=== PATIENT | male | born 1965 | race Caucasian/White ===

== ENCOUNTER → 2019-12-01 12:39 | Outpatient (CLI) | payer BC, SELFPAY ==
--- NOTE | 2019-12-01 12:48 | US_ITS ---
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 NORMAL WAVEFORMS BILATERAL. Conclusion Normal appearing resting noninvasive lower extremity arterial study. Electronically signed by : Melvin Mckeon MD 12/01/2019 18:06:05
== END ==
PROVIDERS: PCP Family Medicine; Visit Provider Nurse Practitioner Family
DX: L81.9 Disorder of pigmentation, unspecified (principal); R60.9 Edema, unspecified; L65.9 Nonscarring hair loss, unspecified
CPT/HCPCS: 93923

== ENCOUNTER → 2020-03-15 11:47 | Outpatient (CLI) | payer BC, SELFPAY ==
--- NOTE | 2020-03-15 11:50 | MR_ITS ---
PROCEDURE: MR HEAD/BRAIN WO/W CON CLINICAL INDICATION: ABNORMAL CT OF HEAD, FAMILY HX OF DEMENTIA Severe, family history of dementia COMPARISON: No exams were available for comparison TECHNIQUE: Routine multiplanar multi echo sequences are performed without and with gadolinium enhancement. FINDINGS: No midline shift, mass effect, intracranial hemorrhage, or hydrocephalus. The cerebellopontine angle, cerebellum, and brainstem have an unremarkable appearance. No enhancing lesions are evident. There is normal sanz-white matter differentiation. The pituitary, optic chiasm, corpus callosum, and craniocervical junction have an unremarkable appearance. No mastoid effusion is evident. There is increased T2 signal involving the left petrous bone medially. IMPRESSION: 1. No acute intracranial findings. 2. There is increased T2 signal involving the medial aspect of the left petrous bone. This could be related to fluid within a pneumatized in eyes petrous bone. Suggest CT scan the temporal bone for confirmation. Dictated by: Melvin Mckeon MD 03/17/2020 13:27 Melvin Mckeon MD in [place] 03/17/2020 13:27
== END ==
PROVIDERS: PCP Family Medicine; Visit Provider Family Medicine
DX: G44.89 Other headache syndrome (principal); R93.0 Abnormal findings on diagnostic imaging of skull and head, not elsewhere classified; Z81.8 Family history of other mental and behavioral disorders
CPT/HCPCS: 70553; A9576

== ENCOUNTER 2020-10-22 20:25 | Emergency (ER) | payer BC, SELFPAY ==
--- NOTE | 2020-10-22 21:11 | HMH.EDUTC ---
[facility] [place] Clinical Impression: Sinusitis Qualifiers: Sinusitis location: maxillary Chronicity: acute Recurrence: non-recurrent Qualified Code(s): J01.00 - Acute maxillary sinusitis, unspecified Disposition: Home, Self-Care Condition on Discharge: Good Instructions: DI for Sinusitis Prescriptions: Amoxicillin/Potassium Clav [Augmentin 875-125 Tablet] 1 tab PO Q12H 10 Days #20 tab Transmission Status: Pending to [facility] predniSONE [Prednisone 20mg Tab] 20 mg PO BID 5 Days #10 tab Transmission Status: Pending to [facility] Referrals: Dino Jung MD [Primary Care Provider] - Time of Disposition: 21:30 Medical Decision Making - Colt Inquiry Pt receiving controlled substance: No [facility] [place] HPI - General Stated complaint: congestion sinus pressure cough watery eyes Time Seen by Provider: 10/22/20 21:11 - History of Present Illness Provider Complaint: Sinus pressure, pain, pain in teeth, cough, itchy/watery eyes X 3 days. No fever. Has been vaccinated against COVID. Onset (ago): day(s) (3) Relieving factors: none Exacerbating factors: none Associated symptoms: denies other symptoms Treatments prior to arrival: none - Related Data Previous Rx's Medication Instructions Recorded predniSONE [Prednisone 20mg 20 mg PO BID #10 tab 07/05/19 Tab] Amoxicillin/Potassium Clav 1 tab PO Q12H 10 Days #20 tab 10/22/20 [Augmentin 875-125 Tablet] predniSONE [Prednisone 20mg 20 mg PO BID 5 Days #10 tab 10/22/20 Tab] Allergies Allergy/AdvReac Type Severity Reaction Status Date / Time tetracycline Allergy Verified 07/05/18 17:33 [facility] History - Hepatitis A Screen Attestation statement:: This patient has been screened for Hepatitis A risk factors. I have reviewed the patient's past medical history: Yes Laterality Cases: Right: Arthroscopy Shoulder - 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 Smoking Status: Never smoker Alcohol Intake: never Occupational Status: employed ROS Obtained: Yes All systems reviewed & no additional complaints - Eyes Eyes: Reports dry eyes, Reports itchy eyes - ENT Ears, Nose, Mouth, and Throat: Reports sinus pain, Reports sinus pressure, Reports sore throat - Respiratory Respiratory: Reports cough Physical Exam - General General appearance: alert, in no apparent distress - Head Head exam: normocephalic - Eye Eye exam: Present: PERRL - ENT ENT exam: Present: normal oropharynx, TM's normal bilaterally - Expanded ENT Exam Nose exam: Present: sinus tenderness Throat exam: Present: other (PND) - Respiratory Respiratory exam: Present: normal lung sounds bilaterally - Cardiovascular Cardiovascular exam: Present: regular rate, normal rhythm - Neurological Exam Neurological exam: Present: alert, oriented X3 - Psychiatric Psychiatric exam: Present: normal affect, normal mood - Skin Skin exam: Present: warm, dry
[2020-10-22 21:20] VITALS: BP 139/87; PULSE 80; RESP 18; TEMP 36.8; O2SAT 99; BMI 42.0
[2020-10-22 21:32] VITALS: BP 139/87; PULSE 80; RESP 18; TEMP 36.8; O2SAT 99
== END 2020-10-22 21:45 | disposition home or self-care (01) ==
PROVIDERS: Emergency Provider Physician Assistant; PCP Family Medicine
DX: J01.00 Acute maxillary sinusitis, unspecified (principal)
CPT/HCPCS: 99202; G0463

== ENCOUNTER → 2020-12-10 15:20 | Outpatient (CLI) | payer BC, SELFPAY ==
--- NOTE | 2020-12-10 15:28 | XR_ITS ---
PROCEDURE: XR THORACIC SPINE 3V CLINICAL INDICATION: RT SIDED THORACIC BACK PAIN,UNSPECIFIED CHRONICITY COMPARISON: No exams were available for comparison FINDINGS: There is multilevel degenerative disc disease. Prominent endplate osteophytes are present with DISH of the thoracic spine. No acute fracture or dislocation. No lytic or blastic change. Minimal lower thoracic scoliosis convex left. IMPRESSION: Spondylosis with DISH of the thoracic Dictated by: Melvin Mckeon MD 12/10/2020 16:01 Melvin Mckeon MD in [place] 12/10/2020 16:01
== END ==
PROVIDERS: PCP Family Medicine; Visit Provider Family Medicine
DX: M54.6 Pain in thoracic spine (principal)
CPT/HCPCS: 72072

== ENCOUNTER 2021-04-16 19:26 | Emergency (ER) | payer BC, SELFPAY ==
[2021-04-16 19:39] VITALS: BP 141/90; PULSE 81; RESP 22; TEMP 36.7; O2SAT 100; BMI 42.8
[2021-04-16 19:46] LABS: UTC Strep Screen (Rapid) Negative (Negative)
--- NOTE | 2021-04-16 20:22 | HMH.EDUTC ---
[facility] [place] Disposition Clinical Impression: Strep sore throat Disposition: Home, Self-Care Condition on Discharge: Good Instructions: DI for Strep Throat Additional Instructions: Start antibiotics today be sure to take it as ordered with the full length of time although you should start feeling better in 24-48 hours. Change toothbrush and toothpaste 24-48 hours after starting antibiotics Tylenol or Motrin as needed for fever or pain Encourage fluids, water, Gatorade, Powerade, try cold fluids, popsicles, ice cream will make it feel better You are contagious for 24 hours. Avoid kissing anyone, no eating or drinking after anyone. You are contagious. Follow-up the ER for new or worsening symptoms or no noticeable improvement over the next 24-48 hours. Follow-up with PCP this week. Prescriptions: Azithromycin [Zithromax 250mg tab] 250 mg PO DIRECTED #6 tab Transmission Status: Pending to [facility] Referrals: Dino Jung MD [Primary Care Provider] - Time of Disposition: 20:28 Medical Decision Making - Colt Inquiry Pt receiving controlled substance: No Vital Signs: 04/16/21 19:39 Temperature 98.0 F Temperature Source Oral Pulse Rate [Right Brachial] 81 Respiratory Rate 22 Blood Pressure [Right Arm] 141/90 H Blood Pressure Mean [Right Arm] 107 Blood Pressure Source [Right Arm] Automatic Cuff Blood Pressure Position [Right Arm] Sitting 02 Sat by Pulse Oximetry 100 - Lab Data Lab Results 04/16/21 19:39: Strep Scn Rapid Clinic Negative Orders (Tests/Meds): ORDERS Category Date Time Status Strep Screen Confirmation Stat Micro 04/16/21 19:39 Received [facility] [place] HPI - General Chief complaint: Urgent Treatment Center Stated complaint: sore throat Time Seen by Provider: 04/16/21 20:23 Description of Symptoms (Recalled from Triage Doc. by RN): PT STATES THAT HE WENT TO A FOOTBALL GAME LAST NIGHT AND STARTED WITH A SORE THROAT THAT HAS WORSENED THROUGHOUT THE DAY. DENIES ANY OTHER SYMPTOMS. HEENT Symptoms (Recalled from RN notes): Yes Resp Symptoms (Recalled from RN notes): No Skin Symptoms (Recalled from RN notes): No MS Symptoms (Recalled from RN notes): No Functional Status (Recalled from RN notes): WNL - History of Present Illness Provider Complaint: 55 yr old male states he went to a foot ball game and started having a sore throat. Pt states the sore throat has increased. - Related Data Previous Rx's Medication Instructions Recorded Amoxicillin/Potassium Clav 1 tab PO Q12H 10 Days #20 tab 10/22/20 [Augmentin 875-125 Tablet] predniSONE [Prednisone 20mg 20 mg PO BID 5 Days #10 tab 10/22/20 Tab] Azithromycin [Zithromax 250mg 250 mg PO DIRECTED #6 tab 04/16/21 tab] Allergies Allergy/AdvReac Type Severity Reaction Status Date / Time erythromycin base Allergy Verified 10/22/20 21:30 tetracycline Allergy Verified 07/05/18 17:33 - Worker's Comp Is this a Worker's Comp case?: No [facility] History - Hepatitis A Screen Drug use history?: No High risk sexual behaviors?: No History of sexually transmitted infection?: No Currently employed?: No Childcare worker?: No Do you have indoor plumbing?: Yes Do you have electricity?: Yes Attestation statement:: This patient has been screened for Hepatitis A risk factors. I have reviewed the patient's past medical history: Yes Laterality Cases: Right: Arthroscopy Shoulder - 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 Smoking Status: Never smoker Alcohol Intake: never Occupational Status: employed Household Members: family ROS Obtained: Yes Systems reviewed as appropriate & no additional complaints - Constitutional Constitutional: Reports system reviewed and no additional complaints, except as docu, Denies fever(s) - Eyes Eyes: Reports system reviewed and no additional complaints, except as docu, Denies blurry vision - ENT Ears, Nose, Mouth, and Throat: Reports system reviewed and no additional complaints, except as
[2021-04-16 20:27] VITALS: BP 141/90; PULSE 81; RESP 22; TEMP 36.7; O2SAT 100
== END 2021-04-16 20:38 | disposition home or self-care (01) ==
PROVIDERS: Emergency Provider Nurse Practitioner Family; PCP Family Medicine
DX: J02.0 Streptococcal pharyngitis (principal)
CPT/HCPCS: 87880; 99202; G0463

== ENCOUNTER 2021-09-09 09:30 | Emergency (ER) | payer BC, SELFPAY ==
[2021-09-09] VITALS (7 sets, daily range): BP systolic 139–158; BP diastolic 68–89; PULSE 65–82; RESP 16–17; TEMP 36.6–37.1; O2SAT 97–98; BMI 43.0; BMI 44.3
--- NOTE | 2021-09-09 11:27 | HMH.EDUTC ---
[facility] [place]ression: Pre-syncope Disposition: Still a Patient Condition on Discharge: Fair Referrals: Dino Jung MD [Primary Care Provider] - Time of Disposition: 11:51 Medical Decision Making - Medical Records Medical records reviewed: No: I reviewed the patient's medical records. - Colt Inquiry Pt receiving controlled substance: No Vital Signs: 09/09/21 11:20 Temperature 97.8 F Temperature Source Oral Pulse Rate [Right Brachial] 82 Respiratory Rate 17 Blood Pressure [Right Arm] 147/82 H Blood Pressure Mean [Right Arm] 103 Blood Pressure Source [Right Arm] Automatic Cuff Blood Pressure Position [Right Arm] Sitting 02 Sat by Pulse Oximetry 98 Oxygen Delivery Method Room Air Medical Decision Narrative: He was transferred to the er for cardiac workup. [facility] [place] - General Stated complaint: lightheaded Time Seen by Provider: 09/09/21 11:27 - History of Present Illness Provider Complaint: He states that he had a peroid of feeling light headed this morning. It lasted approximately 1 hour. He was driving when it started. He does feel better now. He denies any chest pain or other symptoms accompanying it. - Related Data Previous Rx's Medication Instructions Recorded Amoxicillin/Potassium Clav 1 tab PO Q12H 10 Days #20 tab 10/22/20 [Augmentin 875-125 Tablet] predniSONE [Prednisone 20mg 20 mg PO BID 5 Days #10 tab 10/22/20 Tab] Azithromycin [Zithromax 250mg 250 mg PO DIRECTED #4 tab 04/16/21 tab] Allergies Allergy/AdvReac Type Severity Reaction Status Date / Time erythromycin base Allergy Verified 10/22/20 21:30 tetracycline Allergy Verified 07/05/18 17:33 [facility] History - Hepatitis A Screen Attestation statement:: This patient has been screened for Hepatitis A risk factors. I have reviewed the patient's past medical history: Yes Laterality Cases: Right: Arthroscopy Shoulder - 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 Smoking Status: Never smoker Alcohol Intake: never Occupational Status: employed Household Members: family ROS Obtained: Yes All systems reviewed & no additional complaints - Constitutional Constitutional: Denies chills, Denies fever(s) - Eyes Eyes: Denies eye discharge - ENT Ears, Nose, Mouth, and Throat: Denies dizziness, Denies otalgia, Denies sore throat - Cardiovascular Cardiovascular: Reports as per HPI - Respiratory Respiratory: Denies shortness of breath, Denies chest congestion, Denies cough - Gastrointestinal Gastrointestingal: Denies: abdominal pain, diarrhea, nausea, vomiting Physical Exam - General General appearance: alert, in no apparent distress - Head Head exam: atraumatic, normocephalic, normal inspection - Eye Eye exam: Present: normal appearance, PERRL, EOMI - ENT ENT exam: Present: normal exam, normal oropharynx, mucous membranes moist, TM's normal bilaterally, normal external ear exam - Neck Neck exam: Present: normal inspection, full ROM, trachea midline. Absent: meningismus, lymphadenopathy - Chest Chest inspection: Present: normal inspection, symmetric chest wall rise. Absent: tenderness - Respiratory Respiratory exam: Present: normal lung sounds bilaterally. Absent: respiratory distress - Cardiovascular Cardiovascular exam: Present: regular rate, normal rhythm. Absent: JVD - Abdominal Exam Abdominal exam: Present: soft, normal bowel sounds. Absent: distention, tenderness, guarding - Extremities Exam Extremities exam: Present: normal inspection, full ROM, normal capillary refill. Absent: calf tenderness - Back Exam Back exam: Present: normal inspection. Absent: tenderness - Neurological Exam Neurological exam: Present: alert, oriented X3 - Psychiatric Psychiatric exam: Present: normal affect, normal mood - Skin Skin exam: Present: warm, dry, intact, normal color - Lymphatic Lymphatic Findings: no adenopathy
--- NOTE | 2021-09-09 11:50 | PC.NURSE ---
PATIENT SENT TO ER PER Allyssa HAMLIN APRN FOR FURTHER EVALUATION. REPORT GIVEN TO Verónica JO RN
[2021-09-09 12:17] LABS: POC Glucose,Bedside 109 (70-110)
--- NOTE | 2021-09-09 12:29 | ECG_ITS ---
APPROVED REPORT Exam: Resting ECG HR:67 bpm ECG Measurements Heart Rate 67 AXES MS 163 P 26 QRSd 93 QRS 2 QT 385 T 5 QTc 400 Conclusion SINUS RHYTHM POSSIBLE RIGHT VENTRICULAR CONDUCTION DELAY [RSR (QR) IN V1/V2] ST ELEVATION CONSISTENT WITH INJURY, PERICARDITIS, OR EARLY REPOLARIZATION [ST ELEVATION W/O NORMALLY INFLECTED T-WAVE] NONSPECIFIC ST & T-WAVE ABNORMALITY ABNORMAL ECG UNCONFIRMED REPORT Electronically signed by : Dino Cameron MD 09/09/2021 19:34:44
--- NOTE | 2021-09-09 12:36 | HMH.EDGENADL ---
ED Disposition Clinical Impression: Lightheadedness, Elevated blood pressure reading Disposition: Home, Self-Care Condition on Discharge: Good Instructions: DI for High Blood Pressure Additional Instructions: Check your blood pressure every day to 2 and record result. Take it to primary care provider. Follow-up with primary care provider for further evaluation and treatment. Return to the emergency department if symptoms worsen. Referrals: Dino Jung MD [Primary Care Provider] - - Critical Care Critical Care Time: No Attestation: On 09/09/21, the high probability of a clinically significant, sudden or life threatening deterioration of the following system(s) required my full and direct attention, intervention and personal management. The time I documented below is in addition to time spent performing reported procedures but includes the following listed in this critical care notation. Medical Decision Making - Colt Inquiry Pt receiving controlled substance: No Vital Signs: 09/09/21 11:20 09/09/21 12:00 09/09/21 13:58 Temperature 97.8 F 98.7 F Temperature Source Oral Oral Pulse Rate [Orthostatic Lying] 71 Pulse Rate [Right Brachial] 82 70 Respiratory Rate 17 16 Blood Pressure [Orthostatic Lying Left Arm] 148/68 H Blood Pressure [Orthostatic Sitting Left Arm] Blood Pressure [Orthostatic Standing Left Arm] Blood Pressure [Right Arm] 147/82 H 158/89 H Blood Pressure Mean [Right Arm] 103 112 Blood Pressure Source [Right Arm] Automatic Cuff Blood Pressure Position [Right Arm] Sitting Sitting 02 Sat by Pulse Oximetry 98 98 Oxygen Delivery Method Room Air Room Air 09/09/21 14:00 09/09/21 14:02 Temperature Temperature Source Pulse Rate [Orthostatic Lying] 65 Pulse Rate [Right Brachial] Respiratory Rate Blood Pressure [Orthostatic Lying Left Arm] 152/84 H Blood Pressure [Orthostatic Sitting Left Arm] 152/84 H Blood Pressure [Orthostatic Standing Left Arm] 157/81 H Blood Pressure [Right Arm] Blood Pressure Mean [Right Arm] Blood Pressure Source [Right Arm] Blood Pressure Position [Right Arm] 02 Sat by Pulse Oximetry Oxygen Delivery Method - Lab Data Lab Results 09/09/21 12:10: POC Glucose 109 09/09/21 13:10: WBC 6.9, RBC 5.40, Hgb 16.0, Hct 49.0, MCV 90.6, MCH 29.6, MCHC 32.7, RDW 13.8, Plt Count 220, MPV 9.2, Neut % (Auto) 63.8, Lymph % (Auto) 22.8, Mclennan % (Auto) 8.0, Eos % (Auto) 2.3, Baso % (Auto) 3.0 H, Neut # (Auto) 4.4, Lymph # (Auto) 1.6, Mclennan # (Auto) 0.6, Eos # (Auto) 0.2, Baso # (Auto) 0.2 09/09/21 13:10: Sodium 138, Potassium 4.1, Chloride 106, Carbon Dioxide 27, Anion Gap 9.1, BUN 15, Creatinine 0.80, Estimated Creat Clear 101, Estimated GFR 99, Est GFR ( Amer) 120, Glucose 86, Calcium 8.2 L, Total Bilirubin 0.6, AST 39, ALT 31, Alkaline Phosphatase 86, Troponin I < 0.01, Total Protein 7.0, Albumin 4.1, Globulin 2.9, Albumin/Globulin Ratio 1.4 Result diagrams: 09/09/21 13:10 09/09/21 13:10 Orders (Tests/Meds): ED MEDICATIONS Generic Name Dose Route Start Last Admin Trade Name Freq PRN Reason Stop Dose Admin Sodium Chloride 10 ml 09/09/21 12:45 Sodium Chloride 0.9% 10ml Flush Syringe IV 10/09/21 12:44 NEEDED PRN Maintain IV Site ORDERS Category Date Time Status Troponin I Q3H Lab 09/09/21 15:45 Ordered Troponin I Q3H Lab 09/09/21 18:45 Ordered - ECG Data Tracing #1 EKG interpreted by Harley Myers MD: Rhythm: sinus Rate: 67 [place]: normal Ectopy: none Conduction: normal ST Segment Changes: Mild diffuse elevation consistent with early repolarization T Wave Changes: none Q Waves: none No evidence of acute ischemia or injury No prior EKGs available for comparison. Medical Decision Narrative: Discussed patient's blood pressure with him. He says that the last doctor's visit with Dr. Jung his blood pressure was in the 140 systolic. He was not started on any medication. He says
[2021-09-09 13:19] LABS: Basophils # 0.2 K/mm3 (0-0.2); Eosinophils # 0.2 K/mm3 (0.0-0.4); Eosinophils % 2.3 % (0.1-12.0); Lymphocytes # 1.6 K/mm3 (0.7-4.5); Lymphocytes % 22.8 % (10-50); Mean Corpuscular HGB Conc 32.7 g/dL (31.8-35.4); Mean Corpuscular Hemoglobin 29.6 pg (27.0-31.2); Mean Corpuscular Volume 90.6 fl (80-94); Mean Platelet Volume 9.2 fl (7.4-10.4); Monocytes # 0.6 K/mm3 (0.1-1.0); Neutrophils # 4.4 K/mm3 (1.8-7.8); Neutrophils % 63.8 % (37.0-80.0); Platelet Count 220 K/mm3 (142-424); Red Cell Distribution Width 13.8 % (11.5-17.5); White Blood Count 6.9 K/mm3 (4.8-10.8)
[2021-09-09 13:24] LABS: Chloride 106 mmol/L (98-107)
[2021-09-09 13:25] LABS: Potassium 4.1 mmoL/L (3.5-5.1); Sodium 138 mmol/L (136-145)
[2021-09-09 13:27] LABS: Alanine Aminotransferase 31 U/L (12-78); Alkaline Phosphatase 86 U/L (38-126); Anion Gap 9.1 mEq/L (5-15); Aspartate Amino Transferase 39 U/L (17-59); Bilirubin,Total 0.6 mg/dl (0.2-1.3); Blood Urea Nitrogen 15 mg/dl (9-20); Carbon Dioxide 27 mmol/L (22.0-30.0); Creatinine Clearance Estimated 101 mL/min (50-200); Estimated Glomerular Filt Rate 99 ml/min (>60); GFR (African American) 120 ML/MIN (>60)
[2021-09-09 13:28] LABS: Albumin Level 4.1 g/dl (3.5-5.0); Albumin/Globulin Ratio 1.4 (1.1-1.8); Calcium 8.2 mg/dl (8.4-10.2); Globulin 2.9 g/dL (1.3-3.2); Glucose 86 mg/dl (74-100)
[2021-09-09 14:00] LABS: Troponin I < 0.01 ng/ml (0.00-0.034)
== END 2021-09-09 14:32 | disposition home or self-care (01) ==
LOC: UTC 09:33 → ER 11:49
PROVIDERS: Nurse Practitioner Family; Emergency Provider Emergency Medicine; PCP Family Medicine
DX: R42 Dizziness and giddiness (principal); R03.0 Elevated blood-pressure reading, without diagnosis of hypertension
CPT/HCPCS: 80053; 82962; 84484; 85025; 93005; 99283

== ENCOUNTER 2022-07-06 12:28 | Emergency (ER) | payer BC, SELFPAY ==
[2022-07-06 13:05] VITALS: BP 175/77; PULSE 65; RESP 20; TEMP 36.7; O2SAT 96; BMI 42.8
--- NOTE | 2022-07-06 13:13 | EXP.UTC ---
Discharge Plan Disposition Patient Disposition: Home, Self-Care Condition: Good Prescriptions Prescriptions: New benzonatate [benzonatate] 100 mg capsule 100 mg PO TIDP PRN (Reason: Cough) Qty: 30 0RF methylprednisolone 4 mg Tablets,Dose Pack 4 mg PO DIRECTED Qty: 21 0RF amoxicillin-pot clavulanate 875-125 mg Tablet 1 tab PO Q12H Qty: 20 0RF Referrals Follow up/Referrals: Provider,Referral, MD [Primary Care Provider] - See instructions Activity Restrictions/Add. Instructions Additional Instructions/Restrictions: Drink plenty of fluids. Take tylenol or ibuprofen for pain or fever. Take the medications as directed. Follow up with your regular doctor. GO TO THE ER FOR ANY WORSENING SYMPTOMS Clinical Impressions Clinical Impression: Sinusitis Instructions Patient Instructions: Sinusitis, DI for Sinusitis Discharge ED Provider: Buzz Holder [facility] General Stated complaint: congestion cough Time Seen by Provider: 07/06/22 13:13 History of Present Illness Provider Complaint: He states that for the past 3 days he has had sinus congestion, sinus drainage, bilateral ear pain, and a nonproductive cough. Related Data Previous Rx's Medication Instructions Recorded amoxicillin 875 mg-potassium 1 tab PO Q12H #20 tabs 07/06/22 clavulanate 125 mg tablet benzonatate 100 mg capsule 100 mg PO TIDP PRN Cough #30 caps 07/06/22 methylprednisolone 4 mg tablets in 4 mg PO DIRECTED #21 tabs 07/06/22 a dose pack Allergies Allergy/AdvReac Type Severity Reaction Status Date / Time erythromycin base Allergy Verified 07/06/22 13:17 tetracycline Allergy Verified 07/06/22 13:17 [facility] Disclaimer: The information contained in this section may have been updated after the patient was seen, as this information can be updated by other users. 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 Smoking Status: Never smoker alcohol intake: never current occupational status: other Travel in the last 8 weeks: None household members: family ROS Obtained: Yes All systems reviewed & no additional complaints except as documented Constitutional Constitutional: Reports poor appetite Eyes Eyes: Reports system reviewed and no additional complaints, except as documented ENT Ears, Nose, Mouth, and Throat: Reports as per HPI Cardiovascular Cardiovascular: Reports system reviewed and no additional complaints, except as documented and Denies chest pain Respiratory Respiratory: Denies shortness of breath, Denies chest congestion, Reports cough, Denies stridor and Denies wheezing Gastrointestinal Gastrointestingal: Reports system reviewed and no additional complaints, except as documented; Denies abdominal pain, diarrhea or vomiting Musculoskeletal Musculoskeletal: Reports system reviewed and no additional complaints, except as documented and Denies arthralgias Integumentary/Breasts Skin/Breast: Reports system reviewed and no additional complaints, except as documented and Denies rash Neurologic Neurologic: Denies paresthesias Allergic/Immunologic Allergic/Immunologic: Denies wheezing Physical Exam General General appearance: alert and in no apparent distress Eye Eye exam: Present normal appearance, PERRL and EOMI ENT ENT exam: Present mucous membranes moist and normal external ear exam Expanded ENT Exam External ear exam: Present normal external inspection TM/Canal exam: Bilateral TM: erythema and bulging Nose exam: Absent sinus tenderness Nasal speculum exam: Bilateral: normal Mouth exam: Present normal external inspection; Absent drooling Teeth exam: Present normal inspection Throat exam: Present tonsillar erythema and tonsillomegaly Neck Neck exam: Present normal inspection, full ROM and trachea midline; Absent tenderness, lymphadenopathy or thyromegaly Chest Chest inspection: Present normal inspection and symmetric chest wall rise; Absent tenderness or rash R
[2022-07-06 14:00] VITALS: BP 175/77; PULSE 65; RESP 20; TEMP 36.7; O2SAT 96
== END 2022-07-06 14:00 | disposition home or self-care (01) ==
PROVIDERS: Emergency Provider Nurse Practitioner Family
DX: J32.9 Chronic sinusitis, unspecified (principal)
CPT/HCPCS: 99212; G0463

== ENCOUNTER 2022-12-23 08:58 | Emergency (ER) | payer BC, SELFPAY ==
[2022-12-23 09:05] VITALS: BP 162/73; PULSE 75; RESP 20; TEMP 36.8; O2SAT 99; BMI 42.0
--- NOTE | 2022-12-23 09:40 | EXP.UTC ---
Discharge Plan Disposition Patient Disposition: Home, Self-Care Condition: Good Prescriptions Prescriptions: New cephalexin [cephalexin] 500 mg tablet 500 mg PO BID 7 Days Qty: 14 0RF Referrals Follow up/Referrals: Karlos Shankar MD [Primary Care Provider] - See instructions Activity Restrictions/Add. Instructions Additional Instructions/Restrictions: keep area claen and dry follow up with lymph edema clinic follow up with pcp if worsening or no improvement return or be seen in ed Clinical Impressions Clinical Impression: Venous stasis dermatitis of both lower extremities Instructions Patient Instructions: DI for Edema Due to Venous Stasis, Venous Stasis Ulcer Discharge ED Provider: David ([facility])Ezequiel [facility] [place] General Stated complaint: Spot on RT leg red w/inflammation Mode of Arrival: Ambulatory Source of Information: Patient Limitations: No Limitations Time Seen by Provider: 12/23/22 09:41 Description of Symptoms (Recalled from Triage Doc. by RN): PATIENT C/O AREA THAT IS RED AND WARM TO RIGHT LOWER LEG THAT HAS BEEN THERE FOR APPROX 1 WEEK. 2 SMALL SCABS NOTED TO MIDDLE OF AREA. NO KNOWN INJURY. THERE IS ALSO A SMALL SORE TO BACK OF LOWER RIGHT LEG WITH REDNESS AROUND IT HEENT Symptoms (Recalled from RN notes): No Resp Symptoms (Recalled from RN notes): No Skin Symptoms (Recalled from RN notes): Yes MS Symptoms (Recalled from RN notes): No Functional Status (Recalled from RN notes): WNL History of Present Illness Provider Complaint: 57 yr old male c/o sores to lower ext. one on rt lower leg thats been there for 1 week and 1 other area to the back of leg. also another area to the back of left leg with redness and edema Related Data Previous Rx's Medication Instructions Recorded cephalexin 500 mg tablet 500 mg PO BID 7 days #14 tabs 12/23/22 Allergies Allergy/AdvReac Type Severity Reaction Status Date / Time erythromycin base Allergy Verified 07/06/22 13:17 tetracycline Allergy Verified 07/06/22 13:17 Worker's Comp Is this a Worker's Comp case?: No [facility] Disclaimer: The information contained in this section may have been updated after the patient was seen, as this information can be updated by other users. 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: Never smoker alcohol intake: never current occupational status: other Travel in the last 8 weeks: None household members: family ROS Obtained: Yes All systems reviewed & no additional complaints except as documented Constitutional Constitutional: Reports system reviewed and no additional complaints, except as documented Eyes Eyes: Reports system reviewed and no additional complaints, except as documented ENT Ears, Nose, Mouth, and Throat: Reports system reviewed and no additional complaints, except as documented Cardiovascular Cardiovascular: Reports system reviewed and no additional complaints, except as documented, Reports leg edema, Reports leg ulcers and Reports other Respiratory Respiratory: Reports system reviewed and no additional complaints, except as documented Gastrointestinal Gastrointestingal: Reports system reviewed and no additional complaints, except as documented Musculoskeletal Musculoskeletal: Reports system reviewed and no additional complaints, except as documented and Reports as per HPI Integumentary/Breasts Skin/Breast: Reports system reviewed and no additional complaints, except as documented, Reports as per HPI, Reports pruritus and Reports wounds Physical Exam General General appearance: alert and in no apparent distress Head Head exam: atraumatic and normocephalic Eye Eye exam: Present normal appearance and PERRL ENT ENT exam: Present normal exam Neck Neck exam: Present normal inspection Respiratory Respiratory exam: Present normal lung sounds bilaterally Cardiovascular Cardiovascular exam: Present regular rate and normal rhythm Extremities Ex
[2022-12-23 09:56] VITALS: BP 162/73; PULSE 75; RESP 20; TEMP 36.8; O2SAT 99
== END 2022-12-23 10:00 | disposition home or self-care (01) ==
PROVIDERS: Emergency Provider Nurse Practitioner Family; PCP Family Medicine
DX: I87.2 Venous insufficiency (chronic) (peripheral) (principal)
CPT/HCPCS: 99212; 99214; G0463

== ENCOUNTER 2024-01-20 07:32 | Emergency (ER) | payer BC, SELFPAY ==
[2024-01-20 07:40] VITALS: BP 165/83; PULSE 57; O2SAT 99
--- NOTE | 2024-01-20 07:41 | HMH.EDGENADL ---
Discharge Plan Disposition Patient Disposition: Home, Self-Care Condition: Good Prescriptions Prescriptions: New tamsulosin [Flomax] 0.4 mg capsule 0.4 mg PO DAILY 5 Days Qty: 5 0RF ibuprofen [IBU] 800 mg tablet 800 mg PO Q6H PRN (Reason: pain) 5 Days Qty: 20 0RF ondansetron HCl 4 mg tablet 4 mg PO Q6H PRN (Reason: nausea and vomiting) 4 Days Qty: 16 0RF No Action cephalexin [cephalexin] 500 mg tablet 500 mg PO BID 7 Days Qty: 14 0RF Referrals Follow up/Referrals: Karlos Shankar MD [Primary Care Provider] - See instructions Activity Restrictions/Add. Instructions Additional Instructions/Restrictions: You have been evaluated in the ED for your complaints. You may follow-up with your PCP in the next 3 to 5 days. Please return to ED for any new or worsening symptoms. I have written for Flomax to assist with passage of her stone. I have also written for Zofran to assist with nausea. Please take Tylenol and ibuprofen as needed for your pain. I have provided you with follow-up information for urology. Address: [address] [phone] Clinical Impressions Clinical Impression: Left nephrolithiasis, Left flank pain, Calcification of bladder Instructions Patient Instructions: Kidney Stones -- Adult, DI for Acute Abdominal Pain Print Language Print Language: Malay Discharge ED Provider: Pasquale Peterson Adult HPI General Chief complaint: Abdominal Pain Stated complaint: abd pain, kidney pain Time Seen by Provider: 01/20/24 07:38 History of Present Illness HPI narrative: 58-year-old male with no pertinent past medical history presents today for evaluation concerning left flank pain which he states has been present since around 10:30 PM last night. Patient also states that he had an episode of N/V associated with his left flank pain. He denies having any fevers, chills, chest pain, shortness of breath. He does note mild generalized abdominal pain that is since resolved. Last normal bowel movement was this morning around 6 AM. Has been having normal urination without hematuria. No further complaints Related Data Previous Rx's ?Medication ?Instructions ?Recorded cephalexin 500 mg tablet 500 mg PO BID 7 days #14 tabs 12/23/22 ibuprofen 800 mg tablet (IBU) 800 mg PO Q6H PRN pain 5 days #20 01/20/24 tabs ondansetron HCl 4 mg tablet 4 mg PO Q6H PRN nausea and 01/20/24 vomiting 4 days #16 tabs tamsulosin 0.4 mg capsule (Flomax) 0.4 mg PO DAILY 5 days #5 caps 01/20/24 Allergies Allergy/AdvReac Type Severity Reaction Status Date / Time erythromycin base Allergy Verified 01/20/24 07:54 tetracycline Allergy Verified 01/20/24 07:[facility] Disclaimer: The information contained in this section may have been updated after the patient was seen, as this information can be updated by other users. 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 smoker alcohol intake: never current occupational status: other Travel in the last 8 weeks: None household members: family ROS Obtained: Yes All systems reviewed & no additional complaints except as documented Physical Exam General General appearance: alert and in no apparent distress Head Head exam: atraumatic and normocephalic Eye Eye exam: Present normal appearance, PERRL and EOMI ENT ENT exam: Present normal oropharynx and mucous membranes moist Neck Neck exam: Present full ROM; Absent meningismus Respiratory Respiratory exam: Absent respiratory distress, wheezes, stridor or accessory muscle use Cardiovascular Cardiovascular exam: Present normal rhythm Abdominal Exam Abdominal exam: Present soft; Absent distention, tenderness, guarding, rebound or rigidity Back Exam Back exam: Present CVA tenderness (L); Absent CVA tenderness (R) Neurological Exam Neurological exam: Present alert, oriented X3 and CN II-XII intact; Absent motor sensory deficit Psychiatric Psychiatric exam: Present normal affect and normal mood Skin Skin exam: Present warm and dry Medical Decision Making Medical Records Medical records reviewed: Yes I reviewed the patient's medical records. Colt Inquiry Pt receiving controlled substance: No Colt was queried for this patient: No Vital Signs: 01/20/24 07:49 Temperature 97.8 F Temperature Source Oral Pulse Rate [Left] 59 L Respiratory Rate 16 Blood Pressure [Right Arm] 165/83 H Blood Pressure Mean [Right Arm] 110 Blood Pressure Source [Right Arm] Automatic Cuff Blood Pressure Position [Right Arm] Sitting 02 Sat by Pulse Oximetry 99 Oxygen Delivery Method Room Air Lab Data Lab Results 01/20/24 07:49: Urine Color Yellow, Urine Appearance Clear, Urine pH 6.0, Ur Specific [place] 1.025, Urine Protein Negative, Urine Glucose (UA) Negative, Urine Ketones Negative, Urine Blood 3+, Urine Nitrate Negative, Urine Bilirubin Negative, Urine Urobilinogen 0.2, Ur Leukocyte Esterase Negative, Urine RBC Occasional, Urine WBC Occasional, Ur Squamous Epith Cells Occasional, Urine Bacteria 1+ 01/20/24 08:00: WBC 11.8 H, RBC 5.05, Hgb 15.4, Hct 47.0, MCV 93.0, MCH 30.5, MCHC 32.8, RDW 13.5, Plt Count 220, MPV 9.1, Neut % (Auto) 87.7 H, Lymph % (Auto) 7.1 L, Teller % (Auto) 4.3, Eos % (Auto) 0.4, Baso % (Auto) 0.4, Neut # (Auto) 10.4 H, Lymph # (Auto) 0.9, Teller # (Auto) 0.5, Eos # (Auto) 0.1, Baso # (Auto) 0.1, Total Counted 100, Neutrophils % (Manual) 88 H, Lymphocytes % (Manual) 7 L, Monocytes % (Manual) 5, Platelet Estimate Normal, RBC Morphology Normal, Sodium 138, Potassium 3.9, Chloride 107, Carbon Dioxide 26, Anion Gap 8.9, BUN 13, Creatinine 0.90, Estimated Creat Clear 137, Estimated GFR 86, Est GFR ( Amer) 104, Glucose 130 H, Calcium 8.5, Total Bilirubin 0.4, AST 30, ALT 25, Alkaline Phosphatase 87, Total Protein 7.2, Albumin 4.2, Globulin 3.0, Albumin/Globulin Ratio 1.4 01/20/24 08:00 01/20/24 08:00 Orders (Tests/Meds): ED MEDICATIONS Generic Name Dose Route Start Last Admin Trade Name Freq PRN Reason Stop Dose Admin Tamsulosin HCl 0.4 mg 01/20/24 21:00 Tamsulosin 0.4mg Capsule PO 02/19/24 20:59 HS MADELEINE Discontinued Medications Generic Name Dose Route Start Last Admin Trade Name Freq PRN Reason Stop Dose Admin Acetaminophen 1,000 mg 01/20/24 09:15 01/20/24 09:24 Acetaminophen 500mg Tab PO 01/20/24 09:16 1,000 mg ONCE ONE Administration Ibuprofen 800 mg 01/20/24 07:48 01/20/24 08:10 Ibuprofen 800 Mg Tablet PO 01/20/24 07:49 800 mg ONCE ONE Administration ORDERS Category Date Time Status CT abdomen pelvis wo con Stat Cat Scan 01/20/24 07:50 Completed CBC w/Auto Diff [Complete Blood Count Auto Diff] Stat Lab 01/20/24 08:00 Completed CMP [Comprehensive Metabolic Panel] Stat Lab 01/20/24 08:00 Completed UA [Urinalysis and Microscopic] Stat Lab 01/20/24 07:49 Completed Medical Decision Narrative: 58-year-old male with no pertinent past medical history presents today for evaluation concerning left flank pain which he states has been present since around 10:30 PM last night. Patient also states that he had an episode of N/V associated with his left flank pain. He denies having any fevers, chills, chest pain, shortness of breath. He does note mild generalized abdominal pain that is since resolved. Last normal bowel movement was this morning around 6 AM. Has been having normal urination without hematuria. On assessment, he was hemodynamically stable and in no acute distress. Afebrile. His chest was clear to auscultation bilaterally. His abdomen was soft nondistended and nontender to palpation. He did have mild CVA tenderness on the left. Other physical exam findings unremarkable. Differential diagnoses include not limited to nephrolithiasis, gastritis, gastroenteritis, among others. Urinalysis today shows 3+ blood. WBC 11.8. Creatinine 0.90.WBC 11.8. Creatinine 0.90. Urinalysis CT showing a 4.6 mm proximal left ureteral calculus causing dilatation of the left collecting system and left ureter. The left kidney is also edematous with left perirenal stranding. Of note he also has calcifications in the posterior wall of the bladder which radiology report notes could indicate infection or malignancy. On reassessment the patient remains hemodynamically stable and in no acute distress. He continues to make urine without difficulty. His pain is well-controlled at this time. I provided him with a dose of Flomax while in the ED to assist with passage of his stone. Given his findings on CT imaging, will discharge with Flomax and urology referral for follow-up. Patient was also provided with strict return ED precautions. He verbalized understanding and agreed with plan. Subsequently discharged Critical Care Critical Care Time Critical Care Time: No
[2024-01-20 07:49] VITALS: BP 165/83; PULSE 59; RESP 16; TEMP 36.6; O2SAT 99; BMI 36.1
--- NOTE | 2024-01-20 07:50 | CT_ITS ---
PROCEDURE INFORMATION: Exam: CT Abdomen And Pelvis Without Contrast Exam date and time: 01/20/2024 8:05 AM Age: 58 years old Clinical indication: Abdominal pain; Flank; Left; Additional info: L flank pain. HX of kidney stones TECHNIQUE: Imaging protocol: Computed tomography of the abdomen and pelvis without contrast. Radiation optimization: All CT scans at this facility use at least one of these dose optimization techniques: automated exposure control; mA and/or kV adjustment per patient size (includes targeted exams where dose is matched to clinical indication); or iterative reconstruction. COMPARISON: ABDPELW CT abdomen pelvis w con 04/23/2018 10:06 PM FINDINGS: Liver: Normal. No mass. Gallbladder and biliary ducts: Normal. No calcified stones. No ductal dilation. Pancreas: Normal. No ductal dilation. Spleen: Normal. No splenomegaly. Adrenal glands: Normal. No mass. Kidneys and ureters: 4.6 millimeter proximal LEFT ureteral calculus causes dilatation of LEFT collecting system and LEFT ureter. The LEFT kidney is edematous and there is LEFT perirenal stranding. 2.7 cm simple cyst posterior right kidney 14 mm simple cyst posterior right kidney . No follow-up imaging recommended . Nonobstructing left renal calculus Stomach and bowel: Unremarkable. No obstruction. No mucosal thickening. Appendix: Normal appendix Intraperitoneal space: Unremarkable. No free air. No significant fluid collection. Vasculature: Unremarkable. No abdominal aortic aneurysm. Lymph nodes: Unremarkable. No enlarged lymph nodes. Urinary bladder: Calcifications in the posterior wall of the bladder. Series 3, image 102 -104. They were not present in 2018. Calcifications in the wall can indicate infection or malignancy. Recommend urology consult. Reproductive: Unremarkable as visualized. Bones/joints: Unremarkable. No acute fracture. Soft tissues: Unremarkable. IMPRESSION: 1. 4.6 millimeter proximal LEFT ureteral calculus causes dilatation of LEFT collecting system and LEFT ureter. The LEFT kidney is edematous and there is LEFT perirenal stranding. 2. Calcifications in the posterior wall of the bladder. Series 3, image 102 -104. They were not present in 2018. Calcifications in the wall can indicate infection or malignancy. Recommend urology consult. COMMENTS: Consistent with the [place] [employer]'s Incidental Findings Committee white paper (J Am Roland Radiol 2018): Any incidental renal lesion less than 1 cm or classified as too small to characterize, or any incidental cystic renal lesion characterized as simple-appearing, is likely benign. No follow-up imaging is recommended for these lesions per consensus recommendations based on imaging criteria.
[2024-01-20 07:59] LABS: Appearance,Urine CLEAR (Clear); Bilirubin,Urine Negative (Negative); Blood, Urine 3+ (Negative); Color,Urine YELLOW (Yellow); Glucose,Urine (UA) Negative (Negative); Ketones,Urine Negative (Negative); Leukocyte Esterase,Urine Negative (Negative); Microscopic, Urine URINE MICROSCOPIC (MICROSCOPIC); Nitrate,Urine Negative (Negative); Protein,Urine Negative (Negative); Specific Gravity, Urine 1.025 (1.005-1.030); Urobilinogen,Urine 0.2 EU/dl (0.2)
--- NOTE | 2024-01-20 08:04 | PC.NURSE ---
pt to ct scan
[2024-01-20 08:09] LABS: Bacteria,Urine 1+ /lpf; RBC,Urine Occasional #/hpf (0-3); Squamous Epithelial Cell,Urine Occasional #/hpf (0-5); WBC,Urine Occasional #/hpf (0-3)
[2024-01-20] MEDS: IBUPROFEN 800 MG TABLET PO (08:10)
[2024-01-20 08:20] LABS: Albumin Level 4.2 g/dl (3.5-5.0); Basophils # 0.1 K/mm3 (0-0.2); Basophils % 0.4 % (0.1-2.0); Chloride 107 mmol/L (98-107); Eosinophils # 0.1 K/mm3 (0.0-0.4); Eosinophils % 0.4 % (0.1-12.0); Hemoglobin 15.4 g/dL (14.1-18.0); Lymphocytes # 0.9 K/mm3 (0.7-4.5); Lymphocytes % 7.1 % (10-50); Mean Corpuscular HGB Conc 32.8 g/dL (31.8-35.4); Mean Corpuscular Hemoglobin 30.5 pg (27.0-31.2); Mean Platelet Volume 9.1 fl (7.4-10.4); Monocytes # 0.5 K/mm3 (0.1-1.0); Monocytes % 4.3 % (1.7-9.3); Neutrophils # 10.4 K/mm3 (1.8-7.8); Neutrophils % 87.7 % (37.0-80.0); Platelet Count 220 K/mm3 (142-424); Red Blood Count 5.05 M/mm3 (4.60-6.20); Red Cell Distribution Width 13.5 % (11.5-17.5); Sodium 138 mmol/L (136-145); White Blood Count 11.8 K/mm3 (4.8-10.8)
[2024-01-20 08:21] LABS: Potassium 3.9 mmoL/L (3.5-5.1)
[2024-01-20 08:23] LABS: Alanine Aminotransferase 25 U/L (12-78); Albumin/Globulin Ratio 1.4 (1.1-1.8); Alkaline Phosphatase 87 U/L (38-126); Anion Gap 8.9 mEq/L (5-15); Aspartate Amino Transferase 30 U/L (17-59); Bilirubin,Total 0.4 mg/dl (0.2-1.3); Blood Urea Nitrogen 13 mg/dl (9-20); Carbon Dioxide 26 mmol/L (22.0-30.0); Creatinine Clearance Estimated 137 mL/min (50-200); Estimated Glomerular Filt Rate 86 ml/min (>60); GFR (African American) 104 ML/MIN (>60); Total Protein,Serum 7.2 g/dl (6.3-8.2)
[2024-01-20 08:24] LABS: Calcium 8.5 mg/dl (8.4-10.2); Glucose 130 mg/dl (74-100)
[2024-01-20 08:25] LABS: MANUAL DIFFERENTIAL MANUAL DIFFERENTIAL (MANUAL DIFF)
[2024-01-20 08:31] VITALS: BP 166/85; PULSE 67; O2SAT 96
[2024-01-20 09:01] VITALS: BP 172/81; PULSE 76; O2SAT 98
[2024-01-20 09:07] LABS: Lymphocytes % 7 % (10-50); Monocytes % 5 % (2-9); Neutrophils % 88 % (42-76); Total Cells Counted 100
[2024-01-20 09:08] LABS: Platelet Estimate Normal; RBC Morphology Normal
[2024-01-20] MEDS: ACETAMINOPHEN 500MG TAB 1000 MG PO (09:24)
[2024-01-20 09:55] VITALS: BP 174/86; PULSE 59; RESP 18; TEMP 36.6
== END 2024-01-20 09:57 | disposition home or self-care (01) ==
PROVIDERS: Emergency Provider Emergency Medicine; PCP Family Medicine
DX: R10.32 Left lower quadrant pain (principal); M54.59 Other low back pain; N20.1 Calculus of ureter; N21.0 Calculus in bladder; R11.2 Nausea with vomiting, unspecified
CPT/HCPCS: 74176; 80053; 81001; 85007; 85025; 85027; 99284

== ENCOUNTER 2024-11-05 15:10 | Outpatient (CLI) | payer BC, SELFPAY ==
[2024-11-05 16:10] LABS: Basophils % 0.4 % (0.1-2.0); Eosinophils # 0.1 Kmm3 (0.0-0.4); Eosinophils % 0.9 % (0.1-12.0); Hematocrit 44.5 % (42.0-52.0); Hemoglobin 15.1 g/dL (14.1-18.0); Immature Granulocytes # 0.01 10^3uL; Immature Granulocytes % 0.1 %; Lymphocytes # 1.5 K/mm3 (0.7-4.5); Lymphocytes % 22.3 % (10-50); Mean Corpuscular HGB Conc 33.9 g/dL (31.8-35.4); Mean Corpuscular Hemoglobin 29.5 pg (27.0-31.2); Mean Corpuscular Volume 86.9 fl (80-94); Mean Platelet Volume 11.1 fl (7.4-10.4); Monocytes # 0.6 K/mm3 (0.1-1.0); Monocytes % 8.9 % (1.7-9.3); Neutrophils # 4.5 K/mm3 (1.8-7.8); Neutrophils % 67.4 % (37.0-80.0); Nucleated Red Blood Cells # 0 10^3/uL; Nucleated Red Blood Cells % 0 %; Platelet Count 234 K/mm3 (142-424); Red Blood Count 5.12 M/mm3 (4.60-6.20); Red Cell Distribution Width 12.8 % (11.5-17.5); Red Cell Distribution Width-SD 39.9 fL; White Blood Count 6.7 K/mm3 (4.8-10.8)
[2024-11-05 17:05] LABS: Alanine Aminotransferase 21 U/L (12-78); Albumin Level 4.5 g/dl (3.5-5.0); Alkaline Phosphatase 64 U/L (38-126); Anion Gap 12.4 mEq/L (5-15); Aspartate Amino Transferase 31 U/L (17-59); Bilirubin,Direct 0.1 mg/dl (0.0-0.4); Bilirubin,Indirect 1.3 mg/dL (0.0-0.9); Bilirubin,Total 1.4 mg/dl (0.2-1.3); Bilirubin,Unconjugated 1.4 mg/dL (0.0-1.1); Blood Urea Nitrogen 17 mg/dl (9-20); Calcium 9.1 mg/dl (8.4-10.2); Carbon Dioxide 27 mmol/L (22.0-30.0); Chloride 102 mmol/L (98-107); Cholesterol 139 mg/dl (140-200); Estimated Glomerular Filt Rate 98 ml/min (>60); GFR (African American) 119 ML/MIN (>60); Glucose 102 mg/dl (74-100); HDL Cholesterol 28 mg/dl (40-60); Magnesium 2.3 mg/dl (1.6-2.3); Potassium 4.4 mmoL/L (3.5-5.1); Sodium 137 mmol/L (136-145); Triglycerides 97 mg/dl (30-150); VLDL Cholesterol 19 mg/dL (0-40)
[2024-11-05 17:16] LABS: Direct LDL Cholesterol 96.68 mg/dL (100-129)
[2024-11-05 17:22] LABS: Free T4 (Free Thyroxine) 1.05 ng/dl (0.78-2.19)
[2024-11-05 17:37] LABS: Thyroid Stimulating Hormone 1.41 uIU/mL (0.465-4.68)
== END 2024-11-05 23:59 | disposition home or self-care (01) ==
LOC: LAB 15:12
PROVIDERS: PCP Family Medicine; Visit Provider Nurse Practitioner
DX: R42 Dizziness and giddiness (principal); R03.0 Elevated blood-pressure reading, without diagnosis of hypertension
CPT/HCPCS: 36415; 80048; 80061; 80076; 83735; 84439; 84443; 85025; 93270

== ENCOUNTER 2024-11-13 09:18 | Outpatient (CLI) | payer BC, SELFPAY ==
--- NOTE | 2024-11-13 | CA_ITS ---
APPROVED REPORT EXAM: Comprehensive 2D, Doppler, and color-flow Echocardiogram Electronic Industrial Controls Mechanic: Wendy Shaikh CRT Ht: 5 ft 9 in Wt: 246lbs BSA: 2.26 BP: 127/70 mmHg Indications: NEW AFIB EDEMA, PALPITATIONS, HTN 2D Dimensions LA Volume 68.90 mL LA Volume Index 29.80 mL/m2 (M/F) 16-34 M-Mode Dimensions RVDd 2.70 cm (0.9-2.6) LA Diam 4.42 cm (1.9-4.0) LVDd 5.04 cm (3.5-5.7) LVDs 3.22 cm (3.5-5.7) IVSd 1.49 cm (0.6-1.1) PWd 1.05 cm (0.6-1.1) EF (Teich) 65.50% FS 36.10% EDV (Teich) 120.50 mL TAPSE 1.60 (<1.7) ESV (Teich) 41.60 mL LV Diastology E Decel Time 140 (160-240 msec) E/A Ratio 3.58 MED A' 3.00 cm/s LAT A' 4.70 cm/s Aortic Valve AO Peak GR. 8.40 mmHg Mitral Valve MV E Max David. 96.0 (40-130 cm/s) MV A Velocity 27.0 (40-130 cm/s) E/A Ratio 3.58 MV PHT 41.0 ms Pulmonary Valve PV Peak Velocity 137.0 (50-150 cm/s) Tricuspid Valve TR P. Velocity 432.00 cm/s RAP Estimate 10.00 mmHg RVSP 84.50 mmHg Left Ventricle The left ventricle is normal size. The left ventricular systolic function is normal. The left ventricular ejection fraction is within the normal range. There is increased LV wall thickness. There is normal LV segmental wall motion. Diastolic function is indeterminate. LVEF is 60%. Right Ventricle Right ventricle is mildly dilated. The right ventricular systolic function is normal. Atria Left atrium is moderately dilated. Right atrium is moderately dilated. There is no Doppler evidence of interatrial shunt. Aortic Valve The aortic valve is mildly thickened. There is no aortic valvular stenosis. No aortic regurgitation is present. Mitral Valve The mitral valve is normal in structure. No evidence of mitral valve stenosis. Trace mitral regurgitation. Tricuspid Valve Tricuspid valve is grossly normal in structure and function. Trace tricuspid regurgitation. There is insufficient TR jet to estimate RVSP. Pulmonic Valve The pulmonary valve is normal in structure. Trace pulmonic regurgitation. Great Vessels The aortic root is normal in size. IVC is normal in size and collapses >50% with inspiration. Pericardium There is no pericardial effusion. Other Information Study Quality: Fair Conclusion Normal biventricular systolic function. Mild RV dilation. Biatrial dilation. No significant valvular stenosis or regurgitation. Electronically signed by : Tasia Rico MD 11/15/2024 19:49:40
== END 2024-11-13 23:59 | disposition home or self-care (01) ==
LOC: RT 09:18
PROVIDERS: PCP Family Medicine; Visit Provider Nurse Practitioner
DX: I11.9 Hypertensive heart disease without heart failure (principal); I48.91 Unspecified atrial fibrillation; R42 Dizziness and giddiness
CPT/HCPCS: 93306

== ENCOUNTER 2024-12-16 06:14 | Outpatient (CLI) | payer BC, SELFPAY ==
--- NOTE | 2024-12-16 | CA_ITS ---
APPROVED REPORT Exam: Pharmacologic Technologist: Katie Banks Ht: 5 ft 9 in Wt: 253 lbs BSA: 2.28 m2 HR: 57 bpm BP: 150/78 mmHg Stress Test Details Test: Lexiscan HR Resting HR: 57 bpm Max Heart Rate (APMHR): 159.322119 bpm Max HR Achieved: 89 bpm Target HR (85% APMHR): 135.384224 bpm % of APMHR: 55.97 Recovery HR: 60 bpm BP Resting BP: 150.0/78.0 mmHg Max BP: 150.0/78.0 mmHg Recovery BP: 149.0/81.0 mmHg ECG Resting ECG: Atrial fibrillation Stress ECG Conclusion Symptoms: - Arrhythmias/Ectopy: Atrial fibrillation, PVC ST-T Changes: Less than [address] depression. Conclusion: EKG unremarkable due to Lexiscan. Electronically signed by : Tasia Rico MD 12/17/2024 00:23:40
--- OUTSIDE RECORDS SUMMARY | 2024-12-16 06:16 | XMS_ITS | Clinical Summary ---
Author Organization Healthcare Address [address] [place] [address] Care Team Providers Care C4 Planner Name Role Phone Dino Jung MD Primary Care Provider [phone] Allergies No known active allergies Medications No known medications Active Problems No known active problems Immunizations Immunization Administration Dates Next Due Hep A, Unspecified 08/17/1999,02/11/1999 Hep B, adult 08/17/1999,03/15/1999,02/11/1999 Meningococcal MCV4P 08/13/2003 PartSimple-PillGuard COVID-19 Vac cine (Purple Cap) 12+ 02/18/2021 TD (adult), 2 Lf tetanus tox oid, preservative free, adsorbed 03/15/1999 Tdap 01/11/2016,08/15/2005 Typhoid, ViCPs 01/24/2016 Typhoid, oral 05/17/2001 Yellow Fever 05/17/2001 Family History Medical History Relation Name Comments Dementia Father Relation Name Status Comments Father 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 Tobacco Use Types Packs/Day Years Used Date Smoking Tobacco: Never Smokeless Tobacco: Never Tobacco Cessation:Counseling Given: Not Answered Alcohol Use Standard Drinks/Week Comments Never 0 (1 standard drink = 0.6 oz pur e alcohol) PHQ-2 Answer Date Recorded Patient Health Questionnaire-2 Score 0 04/16/2024 Sex and Gender Information Value Date Recorded Sex Assigned at Not on file Legal Sex Male 7:47 PM EDT Gender Identity Not on file Sexual Orientation Not on file Last Filed Vital Signs Vital Sign Reading Time Taken Comments Blood Pressure 149/83 04/16/2024 2:05 PM EDT Pulse 77 04/16/2024 1:29 PM EDT Temperature 36.6 C (97.8 F) 04/16/2024 1:29 PM EDT Respiratory Rate - - Oxygen Saturation 97% 04/16/2024 1:29 PM EDT Inhaled Oxygen Concentration - - Weight 121 kg (266 lb 15.6 oz) 04/16/2024 1:29 P M EDT Height 175.3 cm (5' 9 ) 04/16/2024 1:29 PM EDT Body Mass Index 39.43 04/16/2024 1:29 PM EDT Plan of Treatment Upcoming Encounters Date Type Department Care Team ([facility] st Contact Info) Description 04/15/2025 1:00 PM EDT Appointment [facility] Ultrasound [address] [place] [address] 04/15/2025 3:30 PM EDT Office Visit Medical Office Building Urology [address], [address] [place] [address] Jimmy Diez MD [address] [place] [address] Health Maintenance Due Date Last Done Comments [facility]-HIV Screening 1963 [facility]-Hepatitis C Screening 1963 [facility]-/Child/Adol SDOH Screenings 1963 [facility]- SDOH Screenings 1981 [facility]-Adult SDOH Screenings 1981 CT Colonography 2008 Colonoscopy 2008 FIT-DNA 2008 FIT 2008 FOBT 2008 Sigmoidoscopy 2008 [facility]-Colorectal Cancer Screening 2008 [facility]-Pneumococcal Vaccine: 50 + Years (1 of 1 - PCV) 2013 [facility]-Zoster Vaccines (1 of 2) 2013 [id number] Vaccine ( season) 2024 02/18/2021, 09/23/2020, 08/25/2020 [facility]-Influenza Vaccine (Seaso n Ended) 2025 04/13/2021 [facility]-Depression Screening 04/16/2025 04/16/2024 [facility]-DTaP,Tdap,and Td Vaccine s (3 - Td or Tdap) 01/10/2026 01/11/2016, 08/15/2005, 03/15/1999 [facility]-RSV Vaccine: 60+ Years o r (1 - 1-dose 75+ series) 2038 [facility]-Hepatitis A Vaccines Completed 000, 03/14/1999, 02/11/1999 [facility]-Obesity Intervention Completed 024, 02/06/2024 HPV Vaccines Aged Out No longer eligi ble based on patient's age to complete this topic [facility]-HIB Vaccines Aged Out No longer e ligible based on patient's age to complete this topic [facility]-IPV Vaccines Aged Out No longer e ligible based on patient's age to complete this topic [facility]-Rotavirus Vaccines Aged Out No lo nger eligible based on patient's age to complete this topic Insurance [facility] Care Teams C4 Planner Relationship Specialty Start Date End Date Dino Jung MD [address] [place], [place] [address] [address] PCP - General 10/29/20
--- NOTE | 2024-12-16 06:30 | NM_ITS ---
APPROVED REPORT Exam: Nuclear Stress Test Indication: Abnormal EKG Patient Location: Outpatient Stress Tech: Katie Banks [place] Tech:Samantha PolancoJULIANNA, RT (R)(N) Ht: 5 ft 9 in Wt: 242 lbs HR: 53 bpm BP: 150/78 mmHg BSA: 2.24 m2 TID: 1.18 BMI: 35.7 History: Abnormal EKG Procedure: Patient received 0.4 mg of intravenous Lexiscan, resting heart rate 53 bpm, resting blood pressure 150/78 mmHg, with Lexiscan maximum heart rate achieved was 95 bpm which is % of the maximum predicted heart rate and blood pressure was 149/81 mmHg. With Lexiscan, patient denied any complaint of chest pain. Cardiac Stress and Resting SPECT Images: Cardiac Stress and Resting SPECT images were obtained using technetium 99m Myoview 31.6 mCi stress and 10.02 mCi at rest. Resting and stress imaging in supine and prone positions demonstrate a small sized, moderate, reversible perfusion defect in the basal inferior LV wall. Gated imaging demonstrates mildly reduced LV systolic function. LVEF is calculated at 47%. Conclusion: Small sized, moderate, reversible perfusion defect in the basal inferior LV wall. Findings are suggestive of reversible ischemia. Gated imaging demonstrates mildly reduced LV systolic function. LVEF is calculated at 47%. Electronically signed by : Tasia Rico MD 12/17/2024 00:18:17
[2024-12-16] MEDS: SODIUM CHLORIDE 0.9% 10ML SYR (RAD ONLY) 10 ML IV ×2 (08:40)
[2024-12-16] MEDS: ISOTOPE MYOVIEW (PER STUDY) 1 DOSE IV (08:40)
== END 2024-12-16 23:59 | disposition home or self-care (01) ==
LOC: RAD 06:15
PROVIDERS: PCP Family Medicine; Visit Provider Nurse Practitioner
DX: I48.91 Unspecified atrial fibrillation (principal); I49.3 Ventricular premature depolarization; R94.39 Abnormal result of other cardiovascular function study; R94.31 Abnormal electrocardiogram [ECG] [EKG]; R60.0 Localized edema; R03.0 Elevated blood-pressure reading, without diagnosis of hypertension
CPT/HCPCS: 78452; 93017; 93018; A9502; J2785

== ENCOUNTER 2025-01-09 11:05 | Emergency (ER) | payer BC, SELFPAY ==
--- NOTE | 2025-01-09 11:11 | ED_ITS ---
Discharge Plan Disposition Patient Disposition: Home, Self-Care Condition: Good Prescriptions Prescriptions: New cefadroxil 500 mg capsule 500 mg PO BID Qty: 10 0RF No Action metoprolol succinate 50 mg tablet extended release 24 hr 50 mg PO DAILY Qty: 90 3RF cholecalciferol (vitamin D3) 1,250 mcg (50,000 unit) capsule 1,250 mcg PO WEEKLY Patient Comments: TAKE ONE CAPSULE BY MOUTH ONCE A WEEK Xarelto 20 mg tablet 20 mg PO QPMWITHMEAL Rx Instructions: must administer with evening meal amiodarone 400 mg tablet 400 mg PO DIRECTED Patient Comments: TAKE ONE TABLET BY MOUTH TWICE DAILY FOR 10 DAYS (UNTIL 01/11/25), THEN TAKE 1/2 TABLET EVERY DAY THEREAFTER Referrals Follow up/Referrals: Karlos Shankar MD [Primary Care Provider, Medical] - See instructions Activity Restrictions/Add. Instructions Additional Instructions/Restrictions: Follow-up with your urologist. Take antibiotics as prescribed. Stay well- hydrated. Return if pain, inability to urinate, or fevers. Clinical Impressions Clinical Impression: Painless hematuria, Cystitis Instructions Patient Instructions: DI for Urinary Tract Infection (UTI), DI for Urinary Tract Infection in Children Print Language Print Language: [place] Citizen Discharge ED Provider: Primitivo Downey Adult HPI General Chief complaint: Urogenital-Male Stated complaint: Sent by Lead Painter Blood in Urine Time Seen by Provider: 01/09/25 11:11 History of Present Illness HPI narrative: Patient is a 59-year-old male with history of A-fib on Xarelto, kidney stones. He presents today for painless hematuria that began about 1 hour prior to arrival. Reports that he has never had this issue before. He denies any burning with urination or pain in the flanks. He denies any fevers, or bleeding elsewhere. He has been on Xarelto for over 3 months and has not had any bleeding issues. He does endorse weight loss, but it was purposeful 60 pounds over the last year, but did have a 15 pound weight gain in the last couple of weeks. Had a cystoscopy for kidney stones reportedly last year which was normal per patient. Related Data Home Medications ?Medication ?Instructions ?Recorded ?Confirmed cholecalciferol (vitamin D3) 1,250 1,250 mcg PO WEEKLY 12/30/24 01/09/25 mcg (50,000 unit) capsule amiodarone 400 mg tablet 400 mg PO DIRECTED 01/09/25 rivaroxaban 20 mg tablet (Xarelto) 20 mg PO QPMWITHMEA L 01/09/25 01/09/25 Previous Rx's ?Medication ?Instructions ?Recorded metoprolol succinate 50 mg 50 mg PO DAILY #90 tabs 10/10 tablet,extended release 24 hr cefadroxil 500 mg capsule 500 mg PO BID #10 caps 01/09 Allergies Allergy/AdvReac Type Severity Reaction Status Date / Time tetracycline Allergy Verified 12/30/24 14:28 [facility] Disclaimer: The information contained in this section may have been updated after the patient was seen, as this information can be updated by other users. Medical History (Updated 01/09/25 @ 12:21 by Primitivo Downey MD) Abnormal findings on diagnostic imaging of heart and coronary circulation Abnormal ECG Afib 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 Smoking Status: Never smoker alcohol intake: never current occupational status: other Travel in the last 8 weeks?: None household members: family Have you lived/traveled outside [place] in past 30 days?: No Contact w/someone who lives/traveled outside US past 30 days?: No Exposure to someone with infectious disease in past 14 days?: No Do you have a fever (greater than 100.4 F or 38 C)?: No Have you tested positive for COVID-19?: No Exposed to someone with COVID-19 in past 14 days?: No Do you have a sore throat?: No Do you have a cough?: No Do you have any weakness?: No Do you have any diarrhea?: No Are you experiencing any unusual bleeding?: No Do you have any muscle aches/pain?: No Do you have any abdominal pain?: No Are you experiencing loss of taste or smell?: No Other Medical History Have you received the Flu Vaccine for this season: Yes Have you received the Pneumonia Vaccine: Yes ROS Obtained: Yes All systems reviewed & no additional complaints except as documented Physical Exam General General appearance: alert and in no apparent distress Head Head exam: atraumatic and normocephalic Eye Eye exam: Present PERRL and EOMI ENT ENT exam: Present normal oropharynx Neck Neck exam: Present full ROM and trachea midline Chest Chest inspection: Present symmetric chest wall rise Respiratory Respiratory exam: Present normal lung sounds bilaterally; Absent stridor Cardiovascular Cardiovascular exam: Present regular rate and normal rhythm Abdominal Exam Abdominal exam: Present soft; Absent distention or tenderness Extremities Exam Extremities exam: Present full ROM Neurological Exam Neurological exam: Present alert and oriented X3 Psychiatric Psychiatric exam: Present normal mood Skin Skin exam: Present warm and dry Medical Decision Making Medical Records Screening: Per USPSTF and CDC recommendations, given the prevalence of disease in our region, it is our hospital?s policy to screen for HIV and viral Hepatitis for all patients aged 18 and over and those with ongoing risk factors. Colt Inquiry Pt receiving controlled substance: No Vital Signs: 01/09/25 11:12 01/09/25 11:14 Temperature 97.9 F Temperature Source Oral Pulse Rate 67 Pulse Rate [Left] 70 Respiratory Rate 19 Blood Pressure 159/91 H Blood Pressure [Right Arm] 159/91 H Blood Pressure Mean [Right Arm] 113 02 Sat by Pulse Oximetry 97 98 Oxygen Delivery Method Room Air Room Air Lab Data Lab Results 01/09/25 11:10: Urine Color Red, Urine Appearance Turbid, Urine pH 6.5, Ur Specific Willard 1.020, Urine Protein 3+ A, Urine Glucose (UA) Negative, Urine Ketones 1+, Urine Blood 3+ A, Urine Nitrate Positive A, Urine Bilirubin 2+ A, Urine Urobilinogen 2.0, Ur Leukocyte Esterase 2+ A, Urine RBC Tntc, Urine WBC 3- 5, Ur Squamous Epith Cells Occasional, Urine Bacteria 1+ 01/09/25 11:20: WBC 8.0, RBC 5.12, Hgb 15.3, Hct 45.1, MCV 88.1, MCH 29.9, MCHC 33.9, RDW 13.0, Plt Count 228, MPV 11.0 H, Neut % (Auto) 73.9, Lymph % (Auto) 15.5, Gooding % (Auto) 9.4 H, Eos % (Auto) 0.8, Baso % (Auto) 0.3, Neut # (Auto) 5.9, Lymph # (Auto) 1.2, Gooding # (Auto) 0.8, Eos # (Auto) 0.1, Baso # (Auto) 0.0, Sodium 137, Potassium 4.0, Chloride 104, Carbon Dioxide 27, Anion Gap 10.0, BUN 19, Creatinine 0.90, Estimated Creat Clear 127, Estimated GFR 86, Est GFR ( Amer) 104, Glucose 118 H, Calcium 9.0, Total Bilirubin 1.0, AST 42, ALT 51, Alkaline Phosphatase 93, Total Creatine Kinase 113, Total Protein 7.3, Albumin 3.6, Globulin 3.7 H, Albumin/Globulin Ratio 1.0 L 01/09/25 11:20 01/09/25 11:20 Orders (Tests/Meds): ORDERS Category Date Time Status CBC w/Auto Diff [Complete Blood Count Auto Diff] Stat Lab 01/09/25 11:20 Completed CMP [Comprehensive Metabolic Panel] Stat Lab 01/09/25 11:20 Completed Creatine Kinase Stat Lab 01/09/25 11:20 Completed HIV Combo Stat Lab 01/09/25 11:20 Received Hepatitis C Ab Qual. W/ RFX Stat Lab 01/09/25 11:20 Received PT INR [Prothrombin Time INR] Stat Lab 01/09/25 11:20 Received UA [Urinalysis and Microscopic] Stat Lab 01/09/25 11:10 Completed Urine Culture Stat Micro 01/09/25 11:10 Received Medical Decision Narrative: Patient is a 59-year-old male with history of A-fib on Xarelto. He is due for cardioversion next week and was started on amiodarone a couple of days ago. He reports painless hematuria that began today. He has no complaints other than this. On exam, is warm well-perfused with full pulses in all extremities brisk Apley refill no abdominal tenderness no CVA tenderness. He denies any pain at all, and his previous kidney stones have had pain. I have lower suspicion for this at this time. He has had no overt concerning findings for malignancy, will screen for UTI with UA and any kidney disease with metabolic panel. I reviewed the labs which demonstrate no evidence of kidney injury, no evidence of anemia. Urinalysis positive for nitrites and leuk esterase and 1+ bacteria, will send with cefadroxil outpatient for UTI and possible hemorrhagic cystitis, but still recommended patient follow-up with urologist for repeat cystoscopy. A referral was offered to him but he prefers to follow with his urologist that he is already established with. Stricter precautions discussed all questions answered patient amenable plan and discharge Critical Care Critical Care Time Critical Care Time: No
--- OUTSIDE RECORDS SUMMARY | 2025-01-09 11:11 | XMS_ITS | Continuity of Care Document ---
Author Organization [facility] Address [address] [place] [address] Care Team Providers [employer] Division Chair Name Role Phone ISA SALAZAR Primary Care Provider [phone] HARLEY SANTIAGO Laborer/Grade Check Unavailable Assessment No assessment recorded. Plan of Treatment Reminders Order Date Submit Date Provider Last Modified By Organization Details Last Modified Time Details Appointments OV EST 15 2024 02:45P M Harley Santiago MD Not available Not available Not available Lab None recorded. Referral None recorded. Procedures None recorded. Surgeries cardiover jarred, elective, electrica l conversio n of arrhythmi a, external (SURG) 2024 025 [email or web address] Not available 01/01/2025 14:30:38 Imaging electroca rdiogram 2024 025 [facility], [address] [facility] [facility] [address], [place], [address], 01/02/2025 13:47:21 Medication Orders amiodaron e 400 mg tablet 2024 025 [facility], [address] [place] [address] [address], [place], [place], [phone], 01/01/2025 14:31:46 Patient TargetsNo targets recorded. Patient Instructions Encounter Date Encounter Id Patient Instructions Last Modified By Organization Details Last Modified Time 01/01/2025 [id number] I spent >60 minutes in the care of this patient including review of past medical records, updating his/her chart, interpretation of diagnostic testing and discussing diagnosis and current treatment plans. [email or web address] Not available 01/01/2025 14:31:34 Reason for Referral None Reported. Results Created Date Observation Date Name Description Value Unit Range Abnormal Flag Note LastModifiedBy Organization Detail LastModifiedTime 01/02/20 25 01/02/2025 elect rocar diogr am No observ ation record ed. [facility] [address], [place], [address], 01/02/2025 14:37:43 01/03/20 25 01/01/2025 elect rocar diogr am No observ ation record ed. [facility] [address], [place], [address], 01/02/2025 13:47:21 Result Notes None recorded. Problems Name Problem SNOMED Code Status Onset Date Resolution Date Notes Provider Name and Address Organization Details Recorded Time Paroxysmal atrial fibrillation 197298445 Active 2024 Harley Santiago MD [address] [facility], [place], [address] , [place] - [facility] & [place] 13:58:13 Body mass index 30+ - obesity 666080573 Active 2024 Harley Santiago MD [address] [place], [address] , [place] - [facility] & [place] 14:00:35 Essential hypertension 64230101 Active 2024 Harley Santiago MD [address] [place], [address] , [place] - [facility] & [place] 5 14:01:01 Obstructive sleep apnea syndrome 88356642 Active 2024 Harley Santiago MD [address] [place], [address] , [place] [facility] & [place] 14:01:19 Thallium stress test abnormal 720953586 Active 2024 Harley Santiago MD [address] [place], [address] , [place] - [facility] & [place] 14:29:49 Problem Notes None recorded. Medical Equipment None Reported. Allergies Allergen ID Allergen Name Allergen Category Reaction Reaction Severity Criticality Documentation Date Start Date Code Code System Note Provider Name and Address Organization Details Recorded Time 975856 erythromy noé medicatio n Not available Not available Not available 01/01/2025 4053 RxNorm ALEENA Olvera [facility] & [place] 13:57:02 732516 Medicinal product containin g tetracycl ine structure and acting as antibacte rial agent (product) medicatio n Not available Not available Not available 01/01/2025 90238 1004 SNOMED ALEENA Olvera [facility] & [place] 13:57:21 Medications Name Sig Start Date Stop Date Status Note LastModified by Organization Details LastModified Time azithromyci n 250 mg tablet TAKE 2 TABLETS BY MOUTH ON DAY 1, THEN TAKE 1 TABLET DAILY ON DAYS 2-5 01/01 completed Not Available Not Available Not Available ibuprofen 800 mg tablet TAKE 1 TABLET BY MOUTH EVERY 8 HOURS NEEDED WITH FOOD OR MILK active Not Available Not Available No t Available benzonatate 200 mg capsule TAKE ONE CAPSULE BY MOUTH THREE TIMES DAILY NEEDED -SWALLOW WHOLE. DO NOT CRUSH OR CHEW- 01/01 completed Not Available Not Available Not Available metoprolol succinate ER 50 mg tablet,exte nded release 24 hr TAKE ONE TABLET BY MOUTH EVERY DAY active Not Available Not Available No t Available atovaquone 250 mg-proguani l 100 mg tablet TAKE ONE TABLET BY MOUTH EVERY DAY START 2 DAYS PRIOR, THE ENTIRE TRIP, AND 7 DAYS AFTER --TAKE WITH FOOD-- 01/01 completed Not Available Not Available Not Available ondansetron HCl 4 mg tablet TAKE ONE TABLET BY MOUTH EVERY 6 HOURS 01/01 completed Not Available Not Available Not Available ciprofloxac in 500 mg tablet TAKE ONE TABLET BY MOUTH EVERY TWELVE HOURS FOR 7 DAYS -- FINISH ALL MEDICINE -- 01/01 completed Not Available Not Available Not Available amiodarone 400 mg tablet Take 1 tablet every day by oral route for 90 days. 2024 active Not Available Not Available Not Avai lable tamsulosin 0.4 mg capsule TAKE 1 CAPSULE BY MOUTH ONCE DAILY 01/01 completed Not Available Not Available Not Available metoprolol succinate ER 25 mg tablet,exte nded release 24 hr TAKE ONE TABLET BY MOUTH EVERY DAY 01/01 completed Not Available Not Available Not Available ondansetron 4 mg disintegrat ing tablet DISSOLVE 1 TABLET IN MOUTH EVERY 6 HOURS 01/01 completed Not Available Not Available Not Available cholecalcif nirav (vitamin D3) 1,250 mcg (50,000 unit) capsule TAKE ONE CAPSULE BY MOUTH ONCE A WEEK active Not Available Not Available No t Available Xarelto 20 mg tablet TAKE ONE TABLET BY MOUTH EVERY EVENING WITH EVENING MEAL active Not Available Not Available No t Available Vitals Date Recorded Body height Body mass index (BMI) Body weight Heart rate Oxygen saturation Oxygen saturation in Arterial blood by Pulse oximetry Systolic And Diastolic Provider Name and Address Organization Details Last Updated DateTime 175.26 cm 37.2 kg/m2 023533. 28 g 74 /min 97 % 97 % 138/78 mm[Hg] [facility] [place] 13:56:14 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 None recorded. Functional Status Question Answer Note LastModified by Organization D etails LastModified Time Do you or have you ever used any other forms of tobacco or nicotine? No [email or web address] Information not available 01/01/2025 Mental Status None recorded. Family History Relationship Description Onset Age of this Age Resolved Age Notes LastModified by Organization Details LastModified Time Mother Type 2 diabetes mellitus [email or web address] Not available 12/16 13:58:17 Medical History No medical history recorded. Past Encounters Encounter ID Performer Location Encounter Start Date Encounter Closed Date Diagnosis/Indication Diagnosis SNOMED-CT Code Diagnosis ICD10 Code Diagnosis Note [id number] Harley Santiago MD [facility] [address] [facility] [address] [place] [address] 01/01/2025 13:28:09 01/01/2025 14:31:50 Paroxysmal atrial fibrillation 203305930 I48.0 given young age and symptoms of fatigue would benefit from maintenanc e of sinus rhythm. Will initiate on amiodarone load and plan cardiovers ion in about 10 days. Continue with Xarelto. The risks benefits and alternativ es to cardiovers ion were discussed with the patient in detail. The risks include respirator y compromise requiring intubation , cardiac arrhythmia , cardiac arrest and . Body mass index 30+ - obesity 821893756 E66.9 Low-carboh ydrate and low-fat diet Increase exercise to 30 minutes a day. Increase fruits and fresh vegetable intake and decrease processed foods and sugars Essential hypertension 77204193 I10 Continue current medication . Keep log Low-salt diet < 2 gm Na/day, Regular exercise Weight loss Obstructiv e sleep apnea syndrome 62668269 G47.33 Uses CPAP regularly Thallium s tress test abnormal 412609512 R94.39 Small area of inferior basal ischemia patient denies any anginal symptoms blood pressure well controlled LDL of 96.Will clinically monitor for now will get him back into rhythm and then will consider further evaluation based on clinical signs and symptoms. Can consider coronary CTA. Health Concerns Section Related Observation LastModified by Organization Detai ls LastModified Time None Recorded Concern Status LastModified by Organization Details LastModified Time None Recorded Payers Encounter Date Sequence Insurance Name Policy Number Policy Jimenez Covered Member ID Jimenez Member ID Guarantor Name 01/01/2025 1 [employer] [id number] Mike E Beam [id number] Mike Beam Notes Date Note Type Note Provider Name and Address Organization Details Recorded Time 5 text/html 59 M here to establish careTransfer of care from Dr. Guo He was having episodes of lightheadedness, was seen by cardiology and found to be in AfibHe is active walks 45-120 mins/day without any chest pain or shortness of breath. He does describe some fatigue.No prior history of CAD /CVA.No PND, orthopnea, peripheral edema, palpitations, presyncope, syncope As part of his workup he had nuclear stress test which showed small area of inferior basal ischemia , the plan was for heart catheterization for further evaluation. Denies any exertional chest pain or shortness of breath. He has a nonsmoker. Blood pressure is well control LDL of 96. 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
--- OUTSIDE RECORDS SUMMARY | 2025-01-09 11:11 | XMS_ITS | Data Portability ---
Author Organization [place] - [facility] - [place] & [place] [facility] Address [address] [place] [address] Care Team Providers Care Camp Head Counselor Name Role Phone ISA SALAZAR Primary Care Provider HARLEY SANTIAGO Meter Reader Inspector Unavailable Assessment No assessment recorded. Plan of Treatment Reminders Order Date Submit Date Provider Last Modified By Organization Details Last Modified Time Details Appointments OV EST 15 2024 02:45P M Harley Santiago MD Not available Not available Not available Lab None recorded. Referral None recorded. Procedures None recorded. Surgeries cardiover jarred, elective, electrica l conversio n of arrhythmi a, external (SURG) 2024 025 [email or web address] Not available 01/01/2025 14:30:38 Imaging electroca rdiogram 2024 025 [facility], [address] [place] [address] [address], [place], [address], 01/02/2025 13:47:21 Medication Orders amiodaron e 400 mg tablet 2024 025 [facility], [address] [place] [address] [address], [place], [place], [phone], 01/01/2025 14:31:46 Patient TargetsNo targets recorded. Patient Instructions Encounter Date Encounter Id Patient Instructions Last Modified By Organization Details Last Modified Time 01/01/2025 [id number] I spent >60 minutes in the care of this patient including review of past medical records, updating his/her chart, interpretation of diagnostic testing and discussing diagnosis and current treatment plans. [email or web address] Not available 01/01/2025 14:31:34 Reason for Referral None Reported. Results Created Date Observation Date Name Description Value Unit Range Abnormal Flag Note LastModifiedBy Organization Detail LastModifiedTime 01/02/20 25 01/02/2025 elect rocar diogr am No observ ation record ed. [facility] [place] [facility] [address], [place], [address], 01/02/2025 14:37:43 01/03/20 25 01/01/2025 elect rocar diogr am No observ ation record ed. [facility] [place] [facility] [address], [place], [address], 01/02/2025 13:47:21 Result Notes None recorded. Problems Name Problem SNOMED Code Status Onset Date Resolution Date Notes Provider Name and Address Organization Details Recorded Time Paroxysmal atrial fibrillation 141238220 Active 2024 Harley Santiago MD [address] [facility], [place], [address] , [place] [facility] & [place] 13:58:13 Body mass index 30+ - obesity 623604619 Active 2024 Harley Santiago MD [address] [place], [address] , [place] [facility] & [place] 14:00:35 Essential hypertension 93257302 Active 2024 Harley Santiago MD [address] [place], [address] , [place] [facility] & [place] 5 14:01:01 Obstructive sleep apnea syndrome 56076606 Active 2024 Harley Santiago MD [address] [place], [address] , [place] [facility] & [place] 14:01:19 Thallium stress test abnormal 140574512 Active 2024 Harley Santiago MD [address] [facility], [place], [address] , [place] [facility] & [place] 14:29:49 Problem Notes None recorded. Medical Equipment None Reported. Allergies Allergen ID Allergen Name Allergen Category Reaction Reaction Severity Criticality Documentation Date Start Date Code Code System Note Provider Name and Address Organization Details Recorded Time 842252 erythromy noé medicatio n Not available Not available Not available 01/01/2025 4053 RxNorm ALEENA Olvera [facility] & [place] 13:57:02 373496 Medicinal product containin g tetracycl ine structure and acting as antibacte rial agent (product) medicatio n Not available Not available Not available 01/01/2025 62615 1004 SNOMED ALEENA Olvera [facility] & [place] 13:57:21 Medications Name Sig Start Date Stop [...] Last Updated DateTime 175.26 cm 37.2 kg/m2 417715. 28 g 74 /min 97 % 97 % 138/78 mm[Hg] Juan C Acosta [facility] & [place] 13:56:14 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 None recorded. Functional Status Question Answer Note LastModified by Organization D etails LastModified Time Do you or have you ever used any other forms of tobacco or nicotine? No [email or web address] Information not available 01/01/2025 Mental Status None recorded. Family History Relationship Description Onset Age of this Age Resolved Age Notes LastModified by Organization Details LastModified Time Mother Type 2 diabetes mellitus [email or web address] Not available 12/16 13:58:17 Medical History No medical history recorded. Past Encounters Encounter ID Performer Location Encounter Start Date Encounter Closed Date Diagnosis/Indication Diagnosis SNOMED-CT Code Diagnosis ICD10 Code Diagnosis Note [id number] Harley Santiago MD [facility] [address] [place] [address] 01/01/2025 13:28:09 01/01/2025 14:31:50 Paroxysmal atrial fibrillation 063363441 I48.0 given young age and symptoms of [...] . Body mass index 30+ - obesity 278486346 E66.9 Low-carboh ydrate and low-fat diet Increase exercise to 30 minutes a day. Increase fruits and fresh vegetable intake and decrease processed foods and sugars Essential hypertension 84825264 I10 Continue current medication . 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
--- OUTSIDE RECORDS SUMMARY | 2025-01-09 11:11 | XMS_ITS | Clinical Summary ---
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 Name Role Phone Dino Jung MD Primary Care Provider Allergies No known active allergies Medications No known medications Active Problems No known active problems Immunizations Immunization Administration Dates Next Due Hep A, Unspecified 08/17/1999,02/11/1999 Hep B, adult 08/17/1999,03/15/1999,02/11/1999 Meningococcal MCV4P 08/13/2003 [employer] COVID-19 Vac cine (Purple Cap) 12+ 02/18/2021 [...] Upcoming Encounters Date Type Department Care Team ([facility] st Contact Info) Description 04/15/2025 1:00 PM EDT Appointment [facility] Ultrasound [address] [place] [address] 04/15/2025 3:30 PM EDT Office Visit Medical Office Building Urology [address], [address] [place] [address] Jimmy Diez MD [address] [place] [address] Health Maintenance Due Date Last Done Comments [facility]-HIV Screening 1963 [facility]-Hepatitis C Screening 1963 [facility]-/Child/Adol SDOH Screenings 1963 [facility]- SDOH Screenings 1981 [facility]-Adult SDOH Screenings 1981 CT Colonography 2008 Colonoscopy 2008 FIT-DNA 2008 FIT 2008 FOBT 2008 Sigmoidoscopy 2008 [facility]-Colorectal Cancer Screening 2008 [facility]-Pneumococcal Vaccine: 50 + Years (1 of 1 - PCV) 2013 [facility]-Zoster Vaccines (1 of 2) 2013 [id number] Vaccine ( season) 2024 02/18/2021, 09/23/2020, 08/25/2020 [facility]-Influenza Vaccine (#1) 2025 04/13/2021 [facility]-Depression Screening 04/16/2025 04/16/2024 [facility]-DTaP,Tdap,and [...] patient's age to complete [place] [address] [place] [address] [facility] Care Teams Ross Lift Operator Relationship Specialty Start Date End Date Dino Jung MD [facility] [place] [id number] PCP - General 10/29/20
[2025-01-09 11:12] VITALS: BP 159/91; PULSE 67; O2SAT 97
[2025-01-09 11:14] VITALS: BP 159/91; PULSE 70; RESP 19; TEMP 36.6; O2SAT 98; BMI 37.6
[2025-01-09 11:20] LABS: Microscopic, Urine URINE MICROSCOPIC (MICROSCOPIC)
[2025-01-09 11:21] LABS: Color,Urine RED (Yellow); Glucose,Urine (UA) Negative (Negative); Ketones,Urine 1+ (Negative); Leukocyte Esterase,Urine 2+ (Negative); PH,Urine 6.5 (5.0-8.5); Protein,Urine 3+ (Negative); Specific Gravity, Urine 1.020 (1.005-1.030); Urobilinogen,Urine 2.0 EU/dl (0.2)
[2025-01-09 11:31] VITALS: BP 143/82; PULSE 63; O2SAT 96
[2025-01-09 11:33] LABS: Bilirubin,Urine 2+ (Negative)
[2025-01-09 11:36] LABS: Bacteria,Urine 1+ /lpf; RBC,Urine TNTC #/hpf (0-3); Squamous Epithelial Cell,Urine Occasional #/hpf (0-5)
[2025-01-09 11:39] LABS: Hematocrit 45.1 % (42.0-52.0); Hemoglobin 15.3 g/dL (14.1-18.0); Immature Granulocytes % 0.1 %; Mean Corpuscular HGB Conc 33.9 g/dL (31.8-35.4); Mean Corpuscular Hemoglobin 29.9 pg (27.0-31.2); Mean Corpuscular Volume 88.1 fl (80-94); Nucleated Red Blood Cells % 0 %; Platelet Count 228 K/mm3 (142-424); Red Blood Count 5.12 M/mm3 (4.60-6.20); Red Cell Distribution Width-SD 42.2 fL; White Blood Count 8.0 K/mm3 (4.8-10.8)
[2025-01-09 11:44] LABS: Albumin Level 3.6 g/dl (3.5-5.0); Chloride 104 mmol/L (98-107); Potassium 4.0 mmoL/L (3.5-5.1); Sodium 137 mmol/L (136-145)
[2025-01-09 11:47] LABS: Alanine Aminotransferase 51 U/L (12-78); Albumin/Globulin Ratio 1.0 (1.1-1.8); Alkaline Phosphatase 93 U/L (38-126); Anion Gap 10.0 mEq/L (5-15); Aspartate Amino Transferase 42 U/L (17-59); Bilirubin,Total 1.0 mg/dl (0.2-1.3); Blood Urea Nitrogen 19 mg/dl (9-20); Calcium 9.0 mg/dl (8.4-10.2); Carbon Dioxide 27 mmol/L (22.0-30.0); Creatine Kinase 113 U/L (55-170); Creatinine Clearance Estimated 127 mL/min (50-200); Creatinine,Serum 0.90 mg/dl (0.66-1.25); Estimated Glomerular Filt Rate 86 ml/min (>60); GFR (African American) 104 ML/MIN (>60); Globulin 3.7 g/dL (1.3-3.2); Glucose 118 mg/dl (74-100); Total Protein,Serum 7.3 g/dl (6.3-8.2)
[2025-01-09 12:00] VITALS: BP 131/75; PULSE 54; O2SAT 96
[2025-01-09 12:10] LABS: INR 1.92 (0.9-1.1); Prothrombin Time 20.3 seconds (10.1-12.5)
[2025-01-09 12:30] VITALS: BP 131/75; PULSE 54; RESP 20; TEMP 37.1; O2SAT 97
[2025-01-09 13:00] LABS: Hepatitis C Ab Qual. W/ RFX NEGATIVE (Negative)
== END 2025-01-09 12:33 | disposition home or self-care (01) ==
PROVIDERS: Emergency Provider Emergency Medicine; PCP Family Medicine
DX: N30.01 Acute cystitis with hematuria (principal); Z86.79 Personal history of other diseases of the circulatory system; Z79.01 Long term (current) use of anticoagulants; Z87.442 Personal history of urinary calculi
CPT/HCPCS: 80053; 81001; 82550; 85025; 85610; 86803; 87086; 87389; 99283